=== PATIENT | female | born 1995 | race Caucasian/White ===

== ENCOUNTER 2016-02-29 03:31 | Inpatient (IN) | payer BC, OTHER ==
[2016-02-29] VITALS (26 sets, daily range): BP systolic 96–153; BP diastolic 51–86
[~2016-02-29] VITALS: Ht 154.9 cm; Wt 94.1 kg
[2016-02-29 04:36] LABS: EOSINOPHIL (%) 0.5 % (0-5); EOSINOPHIL COUNT 0.1 K/uL (0-0.3); HEMATOCRIT 36.8 % (36.0-46.0); IMMATURE GRANULOCYTE (%) 0.4 % (0.0-0.7); IMMATURE GRANULOCYTE COUNT 0.4 K/uL; LYMPHOCYTE COUNT 1.5 K/uL (1.0-2.8); MCH 31.1 PG (29.0-34.0); MCHC 34.8 G/DL (30.0-36.0); MCV 89.5 FL (83-99); MEAN PLAT.VOLUME 10.1 uM^3 (9.5-12.4); MONOCYTE (%) 7.6 % (3-12); MONOCYTE COUNT 0.8 K/uL (0-0.8); NEUTROPHIL COUNT 8.1 K/uL (1.8-6.4); PLATELET COUNT 209 K/uL (156-360); RBC DIS.WIDTH-CV 13.6 % (11.8-14.6); RBC DIS.WIDTH-SD 43.4 % (39-53); RED BLOOD COUNT 4.11 M/uL (3.80-5.20); WHITE BLOOD COUNT 10.5 K/uL (4.1-10.2)
[2016-02-29] MEDS ORDERED: IBUPROFEN800 MG PO (13:09)
[2016-03-01 07:09] VITALS: BP 105/64
[2016-03-01 16:09] VITALS: BP 132/76
[2016-03-01 23:10] VITALS: BP 127/70
[2016-03-02 08:05] VITALS: BP 108/56
== END 2016-03-02 15:05 | disposition home or self-care (01) | DRG 775 ==
LOC: LDRP-OP 03:31 → 2WEST 03:32 → LDRP-OP 13:19 → 2WEST 03-02 15:05 → LDRP-OP 03-18 14:30
PROVIDERS: Nurse Practitioner
PROC: 00HU33Z Insertion of Infusion Device into Spinal Canal, Percutaneous Approach (ICD-10-PCS; principal; 2016-02-29)
PROC: 10907ZC Drainage of Amniotic Fluid, Therapeutic from Products of Conception, Via Natural or Artificial Opening (ICD-10-PCS; principal; 2016-02-29)
PROC: 10E0XZZ Delivery of Products of Conception, External Approach (ICD-10-PCS; principal; 2016-02-29)
PROC: 3E0S3CZ (ICD-10-PCS; principal; 2016-02-29)
PROC: 0HQ9XZZ Repair Perineum Skin, External Approach (ICD-10-PCS; principal; 2016-02-29)
DX: O70.0 First degree perineal laceration during delivery (principal); O48.0 Post-term pregnancy; Z3A.41 41 weeks gestation of pregnancy; Z37.0 Single live birth; E66.9 Obesity, unspecified; Z68.35 Body mass index [BMI] 35.0-35.9, adult; O99.214 Obesity complicating childbirth; O36.8930 Maternal care for other specified fetal problems, third trimester, not applicable or unspecified
CPT/HCPCS: 85025; C1755; J0595; J3010; J7120